=== PATIENT | female | born 2005 | race Caucasian/White ===

== ENCOUNTER 2024-02-29 12:16 | Emergency (ER) | payer OTHER, SELFPAY ==
[2024-02-29 12:26] VITALS: BP 114/79
[2024-02-29 12:42] VITALS: BMI 31.9
[2024-02-29 12:46] VITALS: BP 104/63
[2024-02-29 13:00] VITALS: BP 106/66
--- NOTE | 2024-02-29 13:03 | ED.GENMED ---
History of Present Illness
General
Chief Complaint: Abdominal Symptoms
Source: patient and family
Exam Limitations: none
Time Seen by Provider: 02/29/24 12:32
History of Present Illness
History of Present Illness:
19-year-old female started with diarrhea yesterday. Then became dark. No mucus. No gross blood. Today vomited once with some pinkish blood. No pain no nausea currently. No unusual food ingestion. No one else is ill at home.
Past History
Past History
ED Past Medical History: None
ED Past Surgical History: None
Review of Systems
Review of Systems
All Other Systems: Not applicable
Constitutional: Denies fever
Respiratory: Reports no symptoms
: Reports no symptoms
Phy Exam
Physical Exam
Physical Exam:
GENERAL: Alert and oriented in no apparent distress
EYE: Orbits normal.
NECK: Supple, no significant adenopathy.
ENT: Pharynx without erythema
CARDIAC: Borderline tachycardic and regular no murmur s.
LUNGS: Clear breath sounds,normal
ABDOMEN: Soft, without focal tenderness or distention. Diarrhea is dark but tested negative
NEUROLOGICAL: Alert and oriented , grossly non-focal
SKIN: Warm and dry, no rash or lesion, no discoloration, skin intact.
MUSCULOSKELETAL: No edema,no deformity.Good color
PSYCH: Normal and appropriate interaction.
Course
Orders/Labs/Results
Orders:
Orders
02/29/24 12:45
IV Insert/Care/Rem.- Treatment PRN
Norovirus by PCR Urgent
MELECIO Source: Feces/Stool
Specimen Description:
Date Specimen was Collected: 02/29/24
Time Specimen was Collected: 14:46
STOOL [C difficile Antigen & Toxins] Urgent
MELECIO Source: Feces/Stool
Specimen Description:
Date Specimen was Collected: 02/29/24
Time Specimen was Collected: 14:46
Stool Culture Urgent
MELECIO Source: Feces/Stool
Specimen Description:
Date Specimen was Collected: 02/29/24
Time Specimen was Collected: 14:46
0.9% Sodium Chloride 1000 ml [Nss] 1,000 ml IV BOLUS
Pantoprazole [Protonix IV] 40 mg IV NOW STA
Test Result ONCE
02/29/24 12:59
Complete Blood Count/With Diff Urgent
Comprehensive Metabolic Panel Urgent
HCG, Serum Qualitative Screen Urgent
Lipase Urgent
Abnormal Lab Results
02/29/24
12:59
WBC 3.8 L 10^3/uL
(4.8-10.8)
MCH 33.5 H pg
(27.0-31.0)
Absolute Lymphs (auto) 0.4 L 10^3/uL
(1.2-3.4)
Neutrophils % 80.2 H %
(42.2-75.2)
Lymphocytes % 10.8 L %
(20.5-51.1)
Carbon Dioxide 21 L mmol/L
(22-30)
Glucose 104 H mg/dl
(70-99)
02/29/24 12:59
02/29/24 12:59
Vital Signs
Initial and Last Documented VS:
Initial Vital Signs
Temp Pulse Resp BP Pulse Ox
98.4 F 112 18 114/79 96
02/29/24 12:26 02/29/24 12:26 02/29/24 12:26 02/29/24 12:26 02/29/24 12:26
Last Documented Vital Signs
Temp Pulse Resp BP Pulse Ox
98.4 F 103 18 104/63 96
02/29/24 12:26 02/29/24 12:46 02/29/24 12:46 02/29/24 12:46 02/29/24 12:26
MDM/Problems Addressed
Differential Diagnosis Includes:
Likely viral syndrome or food poisoning. We have been seeing neurovirus circulate. Stool test negative despite being dark. Patient clinically stable. Will treat as a gastritis or ulcer. Fluids. Labs pending. Abdomen is totally nontender.
Very low suspicion for surgical abdomen.
*Pulse Oximetry
Patient hypoxic: no
*Critical Care Note
Total Time (30-74mins, 75-104mins- exclusive of procedures): Not Applicable
Update Note
Update Note:
Patient is remained asymptomatic. No current recurrent vomiting. Stool tested negative. No symptoms. Just upset about being here. Likely viral upper respiratory/gastritis. Will continue Protonix Zofran and follow-up
ED Attending Note
-
Portions of this chart may have been created with voice recognition software.� Occasional wrong word or��sound alike� substitutions may have occurred due to the inherent limitations of voice recognition software.
Discharge Plan
Departure
Patient Disposition: Home (Routine Discharge)
Date of Disposition: 02/29/24
Time of Disposition: 15:24
Patient with high blood pressure during this ER visit?: No
Discharge Problem:
Vomiting/hematemesis, Suspect gastritis/enteritis
Instructions: Diarrhea in teens and adults, Nausea and Vomiting, Adult (DC)
Prescriptions:
New
pantoprazole 40 mg tablet,delayed release (DR/EC)
40 mg PO DAILY Qty: 20 0RF
ondansetron 4 mg tablet,disintegrating
4 mg PO TIDPRN PRN (Reason: nausea/vomiting) Qty: 14 0RF
Referrals:
Meg Morton MD [Active] - Next open appointment
Earline Borges CRNP [Family Provider] - Follow up in 2-3 days
Activity Restrictions/Additional Instructions:
Light diet for the next 2 to 3 days
Return with recurrent vomiting blood, abdominal pain, fever, darker stools, lightheadedness weakness or any other concerning symptoms
Interventions
Interventions:
*Risk Screen - Suicide Last Done: 12/12/24 12:26
*General Assessment Last Done: 02/29/24 12:26
ED- Fall Risk Assessment Last Done: 02/29/24 12:42
*ED COVID-19 Vaccine History Last Done: 02/29/24 12:26
OR-Piichz-Fnpbsdnotz Assessment Last Done: 02/29/24 12:42
Discharge Date and Time
Print Language: ARABIC
[2024-02-29] MEDS: NSS 1000 IV (13:08)
[2024-02-29] MEDS: PROTONIX IV 40 MG IV (13:08)
[2024-02-29 13:10] LABS: % Basophils 0.3 % (0-2); % Immature Granulocytes 0.5 % (0-0.5); % Lymphocytes 10.8 % (20.5-51.1); % Monocytes 8.2 % (1.7-9.3); % Neutrophils 80.2 % (42.2-75.2); Absolute Lymphocytes 0.4 10^3/uL (1.2-3.4); Absolute Monocytes 0.3 10^3/uL (0.1-0.6); Hematocrit 41.7 % (37.0-47.0); Hemoglobin 14.6 g/dL (12.0-16.0); Mean Corpuscular Hgb 33.5 pg (27.0-31.0); Mean Corpuscular Volume 95.6 fL (81.0-99.0); Mean Platelet Volume 10.4 fL (7.4-10.4); Nucleated Red Blood Cells % 0 %; Platelet Count 240 10^3/uL (130-400); Red Blood Cell Count 4.36 10^6/uL (4.20-5.40); Red Cell Dist. Width 11.5 % (11.5-14.5); White Blood Cell Count 3.8 10^3/uL (4.8-10.8)
[2024-02-29 13:21] LABS: HCG, Serum Qualitative Screen Negative
[2024-02-29 13:24] LABS: ALT (SGPT) 28 U/L (0-35); AST (SGOT) 35 U/L (14-36); Albumin 4.6 g/dl (3.5-5.0); Alkaline Phosphatase 65 U/L (38-126); Blood Urea Nitrogen 13 mg/dl (7-17); Calcium 9.1 mg/dl (8.4-10.2); Carbon Dioxide 21 mmol/L (22-30); Chloride 103 mmol/L (98-107); Estimated Creatinine Clearance 114 ml/min; Glucose 104 mg/dl (70-99); Lipase 51 U/L (23-300); Potassium 3.7 mmol/L (3.5-5.1); Sodium 137 mmol/L (135-145); Total Bilirubin 0.8 mg/dl (0.2-1.3); Total Protein 7.2 g/dl (6.3-8.2); eGFR > 60.00
[2024-02-29 14:00] VITALS: BP 100/66
[2024-02-29 15:00] VITALS: BP 107/62
--- NOTE | 2024-02-29 15:52 | EDRN ---
Discharge instructions reviewed with patient by JOSSUE Rosen.
== END 2024-02-29 15:50 | disposition home or self-care (01) ==
LOC: EMR 12:16
PROVIDERS: EMERGENCY PHYSICIAN Emergency Medicine; FAMILY PHYSICIAN Nurse Practitioner Pediatrics
DX: K92.0 Hematemesis (principal)
CPT/HCPCS: 99283; 96374; 96361; 80053; 83690; 84703; 85025; 87045; 87046; 87324; 87427; 87449; 87798